=== PATIENT | female | born 1935 | race Caucasian/White ===

== ENCOUNTER 2017-09-15 08:32 | Outpatient (CLI) | payer MEDICARE ==
--- NOTE | 2017-09-15 09:34 | CT ---
NONCONTRAST CT THORAX: DATE: 09/15/17. HISTORY: Pulmonary infiltrate. Abnormal chest x-ray. COMPARISON: 08/29/16. FINDINGS: Again noted are the tree-in-bud reticulonodular densities scattered within the lungs bilaterally, but again more prominent within the right upper lobe. Ground-glass densities previously seen on the ean or study are not seen on today's exam. There is a stable 4 mm pulmonary nodule seen in the medial aspect of the right lower lobe. As noted on the prior exam, there is probably minimal mucus plugging within the region of the lingula and righ t middle lobe. There are also a few tiny 4 mm or less nodular densities within the right middle lobe . Lack of intravenous contrast limits the mediastinal structures, but no definite enlarged lymph nodes are seen. Vascular calcifications are again seen in the coronary arteries as well as the thoracic aorta. Post cholecystectomy changes are present. There is partial visualization of a sub-centimeter hypodense lesion in the lateral aspect mid portion left kidney which was not imaged on prior study. There has been interval vertebroplasty changes inv olving the compression fracture of the T12 vertebral body since the prior exam. Osteopenia is present. IMPRESSION: 1. Overall stable reticulonodular densities with tree-in-bud appearance seen scattered within the monique ngs bilaterally which may be related to persistent infectious or inflammatory process. Atypical infe ctious process is a possibility. 2. Stable 4 mm pulmonary nodules in the right lower lobe and right middle lobe. 3. Interval vertebroplasty changes of T12 vertebral body. 4. Cholecystectomy. 5. Subcentimeter incompletely imaged but too small to characterize hypodense lesion in the left kidn ey statistically likely representing a cyst. POS: [facility]
== END 2017-09-15 08:33 | disposition home or self-care (01) ==
LOC: CT 08:32
PROVIDERS: ATTEND Internal Medicine
DX: R91.1 Solitary pulmonary nodule (principal); R91.8 Other nonspecific abnormal finding of lung field; Z90.49 Acquired absence of other specified parts of digestive tract
CPT/HCPCS: 71250

== ENCOUNTER 2017-09-15 10:37 | Outpatient (CLI) | payer MEDICARE | END 2017-09-15 10:38 | disposition home or self-care (01) | LOC: LABBT 10:37 | PROVIDERS: ATTEND Orthopaedic Surgery Sports Medicine | DX: Z01.818 Encounter for other preprocedural examination (principal); R91.8 Other nonspecific abnormal finding of lung field ==

== ENCOUNTER 2017-09-27 06:48 | Day surgery (SDC) | payer MEDICARE ==
--- NOTE | 2017-09-15 10:49 | HP ---
This encounter needs to be placed with bronchoscopy that is going to be scheduled on 09/27/2017, so p lease include this H&P on that. SERVICE: Pulmonary Medicine. HISTORY OF PRESENT ILLNESS: The patient returned to clinic today with repeat CT scan of the chest. We have been following a small pulmonary nodule/mucus plug. I was hoping that she was going to cough this mucus plug out, but she never did. It is still present on the CT scan from today. As such, we are going to go down and investigate that thing. She also has a very small tree-in-bud infiltrate i n the posterior segment of the right upper lobe. This will give us an opportunity to sample that are a as well. She currently denies any fevers, chills, nausea, vomiting, night sweats, cough or sputum production. She has good appetite and her weight is stable. PAST MEDICAL HISTORY: 1. Dyslipidemia. 2. Hypertension. 3. Hypothyroidism. PAST SURGICAL HISTORY: 1. Cholecystectomy. 2. Hysterectomy. SOCIAL HISTORY: Negative for alcohol, tobacco or illicit drug use. She does use alcohol very rarely . She has no history of smoking. There is no exposure to chemicals, asbestos or tuberculosis. FAMILY HISTORY: Noncontributory. ALLERGIES: No known drug allergies. MEDICATIONS: 1. Aspirin 325 mg p.o. daily. 2. Diazepam 10 mg p.o. as needed. 3. Ambien 10 mg p.o. at bedtime as needed. 4. MiraLax 17 grams p.o. daily. 5. Calcium with vitamin D 1 tab p.o. daily. 6. Synthroid 50 mcg p.o. daily. 7. Lipitor 10 mg p.o. daily. 8. Eyedrops on a daily basis. REVIEW OF SYSTEMS: General, head, ears, eyes, nose, throat, cardiovascular, respiratory, GI, , mus culoskeletal, neurologic and skin is negative except as mentioned in the HPI. PHYSICAL EXAMINATION: VITAL SIGNS: Afebrile, pulse 86, respirations 13, saturation 99% on room air. GENERAL: Patient is awake, alert, in no apparent distress. LUNGS: Excellent air entry with prolonged expiratory phase or wheezing. HEART: Normal rate and regular. ABDOMEN: Soft, nontender, nondistended, bowel sounds positive. MUSCULOSKELETAL: No cyanosis or clubbing. No pitting in the bilateral lower extremities. NEUROLOGIC: Grossly nonfocal. IMAGING: As previously noted, CT of the chest demonstrates an endobronchial lesion in the medial bas al segment of the right lower lobe. She also has a tree-in-bud infiltrate in the posterior segment o f the right upper lobe. ASSESSMENT: 1. Pulmonary infiltrate. 2. Endobronchial lesion/pulmonary nodule. PLAN: I will however hold her aspirin 2 days prior to a bronchoscopy, so that we can investigate thi s thing. She will return to clinic in mid October. I will bring her back sooner if any endobronchial disease identifies malignant process.
[2017-09-15 11:01] VITALS: BMI 20.3
[2017-09-27] MEDS ORDERED: Lidocaine 4% PF 5 ML AMP NEB SCH (07:45)
[2017-09-27] MEDS ORDERED: Sodium Chloride 0.9% 1,000 ML IV SCH (07:45)
[2017-09-27] MEDS ORDERED: Lidocaine 2% PF 5 ML VIAL ONE (08:02)
[2017-09-27] MEDS ORDERED: LIDOCAINE HCL 4% Topical Sol (4 ML SOLN.PK.G.) FS SCH (08:15)
[2017-09-27] MEDS ORDERED: Lidocaine 1% (PF) 30 ML VIAL ONE (08:52)
[2017-09-27] MEDS ORDERED: Benzocaine 20% Spray 60 ML CAN ONE (08:53)
[2017-09-27] MEDS ORDERED: Fentanyl 100 MCG/2 ML VIAL ONE (08:54)
[2017-09-27] MEDS ORDERED: Sodium Chloride 0.9% 10 ML ONE (12:59)
[2017-09-27] MEDS ORDERED: PROPOFOL 200 MG/20 ML VIAL ONE (16:20)
[2017-09-27] MEDS ORDERED: Dexamethasone 20 MG/5 ML VIAL ONE (16:20)
[2017-09-27] MEDS ORDERED: Lidocaine 1% PF 5 ML VIAL ONE (16:20)
[2017-09-27] MEDS ORDERED: Glycopyrrolate 0.2 MG/ML 5 ML SYRINGE ONE (16:20)
[2017-09-27] MEDS ORDERED: Ondansetron HCl/PF 4 MG/2 ML Vial ONE (16:20)
--- NOTE | 2017-09-27 17:44 | OP ---
DATE OF PROCEDURE: 09/27/2017 SERVICE: Pulmonary Medicine. PROCEDURES: Fiberoptic bronchoscopy with: 1. Visual airway inspection. 2. Endobronchial brush from the medial basal segment of the right lower lobe. 3. Bronchioalveolar lavage from the medial basal segment of the right lower lobe and posterior segment of the right upper lobe. 4. Transbronchial biopsies from the right upper lobe. PREPROCEDURE DIAGNOSES: 1. Pulmonary nodule. 2. Pulmonary infiltrate. POSTPROCEDURE DIAGNOSES: 1. Pulmonary nodule. 2. Pulmonary infiltrate. PROCEDURE SNUFF BOX FINISHER: Nicanor Macdonald M.D. MEDICATIONS USED: For list of medications, please refer to anesthesia documentation. PREANESTHESIA ASSESSMENT: H&P had been performed. The patient's medications and allergies were reviewed. Informed consent was obtained after discussing risks, benefits, and rationale for performing the procedure as well as alternative options. DESCRIPTION OF PROCEDURE: A timeout was performed, identifying the correct procedure and patient with name and date of . Topical anesthesia was applied to the nose and posterior oropharynx. A diagnostic fiberoptic bronchoscope was introduced through the existing endotracheal tube. The bronchoscope was advanced into the trachea where a tracheobronchial tree inspection was carried out with clear identification of the right upper lobe, right middle lobe, right lower lobe, left upper lobe, lingula, and left lower lobe. Anatomy was normal to the segmental level. Endobronchial brushing was performed in the medial basal segment of the right lower lobe. BAL was also performed at this location. A subsequent BAL was performed in the right upper posterior segment of the right upper lobe. Transbronchial biopsies were obtained from the right upper lobe under fluoroscopic guidance. Hemostasis was verified and bronchoscope was subsequently removed from the patient. Post- procedure fluoroscopy did not demonstrate pneumothorax. FINDINGS: 1. No endobronchial disease was clearly identified. The bronchoscope could not get all the way to the area of interest in the medial basal segment of the right lower lobe. 2. Secretions were minimal, but thick and purulent. COMPLICATIONS: None. ESTIMATED BLOOD LOSS: Less than 2 mL. FLUOROSCOPY TIME: 2 minutes. DISPOSITION: The patient will be discharged from post-anesthesia care unit once she meets criteria. She will follow up as previously directed in clinic. JONATHAN
[2017-09-30 14:16] LABS: Fungus Stain Final report (.)
[2017-10-26 11:22] LABS: Fungus Culture Final report (.)
== END 2017-09-27 13:37 | disposition home or self-care (01) ==
LOC: SDC 06:48
PROVIDERS: ATTEND Internal Medicine
PROC: 0B9F8ZX Drainage of Right Lower Lung Lobe, Via Natural or Artificial Opening Endoscopic, Diagnostic (ICD-10-PCS; principal; 2017-09-27)
PROC: 0BDF8ZX Extraction of Right Lower Lung Lobe, Via Natural or Artificial Opening Endoscopic, Diagnostic (ICD-10-PCS; 2017-09-27)
PROC: 0BDC8ZX Extraction of Right Upper Lung Lobe, Via Natural or Artificial Opening Endoscopic, Diagnostic (ICD-10-PCS; 2017-09-27)
DX: R91.1 Solitary pulmonary nodule (principal); R91.8 Other nonspecific abnormal finding of lung field; M81.0 Age-related osteoporosis without current pathological fracture; E78.5 Hyperlipidemia, unspecified; I10 Essential (primary) hypertension; E03.9 Hypothyroidism, unspecified; Z79.82 Long term (current) use of aspirin; Z79.899 Other long term (current) drug therapy
CPT/HCPCS: 76001; 87070; 87102; 87116; 87205; 87206; 88104; 88112; 88305; 88313; 94640; J1100; J2001; J2405; J2704; J3010; J7620

== ENCOUNTER 2017-10-11 13:50 | Outpatient (CLI) | payer MEDICARE | END 2017-10-11 13:51 | disposition home or self-care (01) | LOC: BICMAMMO 13:50 | PROVIDERS: ATTEND Family Medicine | DX: Z12.31 Encounter for screening mammogram for malignant neoplasm of breast (principal); Z80.3 Family history of malignant neoplasm of breast | CPT/HCPCS: 77063; 77067 ==

== ENCOUNTER 2018-06-28 10:10 | Emergency (ER) | payer MEDICARE ==
[2018-06-28 10:37] LABS: #Basophils 0.1 thou/uL (0.0-0.2); #Eosinphils 0.4 thou/uL (0.0-0.7); #Lymphocytes 1.6 thou/uL (1.20-3.40); #Monocytes 0.5 thou/uL (0.11-0.59); #Neutrophils 2.5 thou/uL (1.40-6.50); %Basophils 2.1 % (0.0-1.0); %Lymphocytes 31.5 % (21.0-51.0); %Monocytes 10.3 % (0.0-10.0); %Neutrophils 49.1 % (42.0-75.0); Hemoglobin 14.2 g/dL (12.0-16.0); Mean Corpuscular HGB CONC 32.3 g/dL (32.0-36.0); Mean Corpuscular Hemoglobin 30.2 pg (27.0-31.0); Mean Corpuscular Volume 93.5 fL (78.0-98.0); Mean Platelet Volume 7.3 fL (7.4-10.4); Platelet Count 301 thou/uL (130-400); RBC Distribution Width 11.7 % (11.5-14.5); White Blood Cell (WBC) Count 5.1 thou/uL (4.8-10.8)
--- NOTE | 2018-06-28 10:49 | RAD ---
PORTABLE CHEST ONE VIEW: Date: 06-28-18 Time: 10:33 a.m. History: Difficulty breathing. FINDINGS: Comparison is made with exam of 07-18-16. The heart size is normal. The aorta is tortuous. The lungs are expanded without focal areas of consol idation, pneumothorax, or pleural effusions. IMPRESSION: No radiographic evidence of acute cardiopulmonary process. POS: H
[2018-06-28 11:01] LABS: Anion Gap 13 mmol/L (10-20); BUN (Urea Nitrogen) 10 mg/dL (9.8-20.1); Calc. Creatinine Clearance 0 mL/min (70-130); Calcium 9.7 mg/dL (7.8-10.44); Carbon Dioxide 24 mmol/L (23-31); Chloride 104 mmol/L (98-107); Estimated GFR-MDRD 65; Glucose 138 mg/dL (83-110); Potassium 3.7 mmol/L (3.5-5.1); Sodium 137 mmol/L (136-145)
[2018-06-28 11:04] LABS: CKMB 1.7 ng/mL (0-6.6); Troponin I Less than 0.010 ng/mL (< 0.028)
== END 2018-06-28 11:20 | disposition home or self-care (01) ==
LOC: ERS 10:10
DX: F41.9 Anxiety disorder, unspecified (principal); E03.9 Hypothyroidism, unspecified; E78.5 Hyperlipidemia, unspecified; Z79.899 Other long term (current) drug therapy
CPT/HCPCS: 71045; 80048; 82553; 83880; 84484; 85025; 94760

== ENCOUNTER 2018-12-12 08:40 | Outpatient (CLI) | payer MEDICARE ==
--- NOTE | 2018-12-12 10:51 | CT ---
EXAM: CT of the chest without contrast HISTORY: Pulmonary nodule COMPARISON: 09/15/2017, 08/29/2016, 10/15/2012 TECHNIQUE: Multiple contiguous axial images were obtained in a CT the chest without contrast. Coronal reformats were performed. FINDINGS: HEART: Normal in size without focal cardiac abnormality MEDIASTINUM: No hilar or mediastinal lymphadenopathy. Evaluation of the mediastinum is limited withou t IV contrast. LUNGS: Increased interstitial markings are seen in the right apex. There is a stable area of scarring along the peripheral aspect of the right upper lobe on image 14 of 64. There is a 6 mm nodule in the medial aspect of the right lower lobe on image 41 and 64 which appears to be larger than the prio r examination, but is stable compared to the exam from 2013. This is immediately adjacent to a bronchiole to the right lower lobe. PLEURAL SPACE: No pneumothorax or pleural effusion. CHEST WALL SOFT TISSUES: Unremarkable OSSEOUS STRUCTURES: Degenerative changes. Vertebroplasty cement at T12. VISUALIZED SUBDIAPHRAGMATIC STRUCTURES: The gallbladder has been removed. There is a hypodensity in t he left kidney which likely represents a cyst. IMPRESSION: Right lower lobe pulmonary nodule is changing in size and is immediately adjacent to a bronchiole. Th is could represent an intrabronchial lesion or focal mucous plug.
== END 2018-12-12 08:41 | disposition home or self-care (01) ==
LOC: CT 08:40
PROVIDERS: ATTEND Internal Medicine
DX: R91.1 Solitary pulmonary nodule (principal); R06.09 Other forms of dyspnea; J98.09 Other diseases of bronchus, not elsewhere classified
CPT/HCPCS: 71250

== ENCOUNTER 2018-12-27 10:44 | Outpatient (CLI) | payer MEDICARE ==
--- NOTE | 2018-12-27 11:16 | MMO ---
Bilateral MAMMO Bilat Screen [facility]. CLINICAL HISTORY: Patient is 83 years old and is seen for screening. The patient has the following family history of breast cancer: mother, at age 80. The patient has no personal history of cancer. The patient has a history of right Excisional Biopsy more than 10 years ago - benign. VIEWS: The views performed were: bilateral craniocaudal with tomosynthesis and bilateral mediolateral oblique with tomosynthesis. FILMS COMPARED: The present examination has been compared to prior imaging studies performed at [facility] on 07/18/2014, 08/06/2015, 09/08/2016 and 10/11/2017. MAMMOGRAM FINDINGS: There are scattered fibroglandular densities. There are vascular calcifications seen in both breasts. There are no suspicious masses, suspicious calcifications, or new areas of architectural distortion. IMPRESSION: A ROUTINE FOLLOW-UP MAMMOGRAM IN 1 YEAR IS RECOMMENDED. THE RESULTS OF THIS EXAM WERE SENT TO THE PATIENT. ACR BI-RADS Category 2 - Benign finding MAMMOGRAPHY NOTE: 1. A negative mammogram report should not delay a biopsy if a dominant of clinically suspicious mass is present. 2. Approximately 10% to 15% of breast cancers are not detected by mammography. 3. Adenosis and dense breasts may obscure an underlying neoplasm.
== END 2018-12-27 10:45 | disposition home or self-care (01) ==
LOC: BICMAMMO 10:44
PROVIDERS: ATTEND Family Medicine
DX: Z12.31 Encounter for screening mammogram for malignant neoplasm of breast (principal); Z80.3 Family history of malignant neoplasm of breast
CPT/HCPCS: 77063; 77067

== ENCOUNTER 2019-05-02 10:34 | Outpatient (CLI) | payer MEDICARE ==
--- NOTE | 2019-05-02 13:06 | BD ---
DEXA BONE DENSITY STUDY: INDICATIONS: Postmenopausal osteoporosis screening. FINDINGS: LUMBAR SPINE BMD (g/cm2) T-SCORE L1 0.725 -2.4 L2 0.805 -2.0 L3 0.767 -2.9 L4 0.736 -3.0 TOTAL 0.758 -2.6 FEMORAL NECK 0.574 -2.5 TOTAL 0.767 -1.4 TEN YEAR FRACTURE RISK: Major osteoporotic fracture: 24% Hip fracture: 8.0% IMPRESSION: The bone mineral density of the lumbar spine and femoral neck both indicate osteoporosis. POS: [facility]
== END 2019-05-02 10:35 | disposition home or self-care (01) ==
LOC: BICMAMMO 10:34
PROVIDERS: ATTEND Internal Medicine Rheumatology
DX: M81.0 Age-related osteoporosis without current pathological fracture (principal)
CPT/HCPCS: 77080

== ENCOUNTER 2019-09-15 13:42 | Inpatient (IN) | payer MEDICARE ==
[~2019-09-15 13:42] MED LIST: Iopamidol-370 76% 500 ML 1 ML ONE
[2019-09-15 14:07] LABS: #Basophils 0.1 thou/uL (0.0-0.2); #Eosinphils 0.5 thou/uL (0.0-0.7); #Monocytes 1.5 thou/uL (0.11-0.59); #Neutrophils 7.9 thou/uL (1.40-6.50); %Basophils 0.7 % (0.0-1.0); %Eosinophils 3.9 % (0.0-10.0); %Lymphocytes 23.1 % (21.0-51.0); %Monocytes 11.8 % (0.0-10.0); %Neutrophils 60.5 % (42.0-75.0); Hemoglobin 13.2 g/dL (12.0-16.0); Mean Corpuscular HGB CONC 34.1 g/dL (32.0-36.0); Mean Corpuscular Hemoglobin 31.4 pg (27.0-31.0); Mean Corpuscular Volume 92.1 fL (78.0-98.0); Mean Platelet Volume 7.2 fL (7.4-10.4); Platelet Count 398 thou/uL (130-400); RBC Distribution Width 11.6 % (11.5-14.5); Red Blood Cell (RBC) Count 4.21 mill/uL (4.20-5.40)
--- NOTE | 2019-09-15 14:19 | RAD ---
Portable frontal chest radiograph: 09/15/2019 COMPARISON: 06/28/2018 HISTORY: Chest pain with shortness of breath FINDINGS: Stable mild increased linear interstitial density with pulmonary hyperinflation. No pneumot horax or pleural fluid. No focal consolidation or alveolar edema. Increased density overlies the T12 vertebral body suggesting prior kyphoplasty. IMPRESSION: No acute findings.
[2019-09-15 14:28] LABS: ALT (SGPT) 19 U/L (8-55); AST (SGOT) 23 U/L (5-34); Alkaline Phosphatase 102 U/L (40-110); Anion Gap 13 mmol/L (10-20); BUN (Urea Nitrogen) 14 mg/dL (9.8-20.1); Bilirubin, Total 0.2 mg/dL (0.2-1.2); Calc. Creatinine Clearance 0 mL/min (70-130); Calcium 9.8 mg/dL (7.8-10.44); Carbon Dioxide 28 mmol/L (23-31); Chloride 99 mmol/L (98-107); Estimated GFR-MDRD 73; Globulin 4.2 g/dL (2.4-3.5); Glucose 96 mg/dL (83-110); Lipase 26 U/L (8-78); Potassium 3.5 mmol/L (3.5-5.1); Protein, Total 8.2 g/dL (6.0-8.3); Sodium 136 mmol/L (136-145)
[2019-09-15 14:48] LABS: CK (CPK) 54 U/L (29-168)
--- NOTE | 2019-09-15 15:47 | CT ---
CT ANGIOGRAM OF THE CHEST: HISTORY: Elevated d-dimer. Chest pain. COMPARISON: 12/12/2018; correlation abdomen pelvis CT 10/29/2014 TECHNIQUE: CT angiogram of the chest is performed in the axial plane. Three-dimensional reformatted i mages are submitted for interpretation FINDINGS: Mediastinum: No mass, lymphadenopathy or hematoma. HEART: Normal size. No significant pericardial fluid. Aorta: No aneurysm or dissection Upper solid abdominal viscera: No abnormal enhancement. Stable cyst emanating from the left kidney me asuring 1.3 cm Trachea and central bronchi: Patent Pleural spaces: No effusion Lung parenchyma: Chronic lung parenchymal changes. Interval development of 2 groundglass opacities in the lateral aspect of the left upper lobe. More focal consolidation in the medial anterior aspect of the left upper lobe, measuring 4.0 x 1.9 cm. Nodules: Stable solid nodule in the right lower lobe measures 0.7 x 0.6 cm, previously measuring 0.6 x 0.8 cm. Stable 0.6 cm nodules in the right upper lobe and middle lobe. Pneumothorax: None Osseous structures: No lytic or blastic lesions. Previous vertebroplasty change at the T12 level. Pulmonary arteries: Adequate contrast opacification pulmonary arterial system to the level of segment al arteries. No filling defect to suggest pulmonary embolism IMPRESSION: 1. No evidence of pulmonary artery embolism to the level segmental arteries. 2. Chronic lung parenchymal changes. 3. Stable nodules in the right lung. 4. Groundglass opacities and more focal consolidation in the left upper lobe. Correlate for infiltrat e. Continued surveillance to ensure resolution. Transcribed Date/Time: 09/15/2019 4:23 PM
[2019-09-15] MEDS ORDERED: Sodium Chloride 0.9% 100 ML ONE (16:37)
[2019-09-15] MEDS ORDERED: cefTRIAXone\\ROCEPHIN 1 GM VIAL ONE (16:37)
[2019-09-15] MEDS ORDERED: HYDROcodone/Acetaminophen 5/325 mg Tablet PO PRN (17:46)
[2019-09-15] MEDS ORDERED: Guaifenesin DM 100-10/5 ML UDCUP PO PRN (17:46)
[2019-09-15] MEDS ORDERED: Senokot S 8.6-50 MG TAB PO PRN (17:46)
[2019-09-15] MEDS ORDERED: Sodium Chloride 0.9% 1,000 ML IV SCH (18:00)
[2019-09-15 18:07] LABS: Troponin I Less than 0.010 ng/mL (< 0.028)
--- NOTE | 2019-09-15 18:10 | PDOC.HHP ---
Hospitalist HPI - History of Present Illness Chest pain with cough, deep breath History of Present Illness: 84F presents to the ED for evaluation of left sided chest pain for several days with inspiration and cough. Denies pain with exertion. Reports URI for over 10 days. Reports she finished a 7 day course of Amoxicillin Monday. Reports fever, Tmax 100.3 but denies chills or diaphoresis. Reports she has continued to feel worse despite antibiotics. Reports a productive cough. ED Course: CT chest with infiltrate on the left upper lung, no evidence of PE. WBC= 13 Was given a dose of Rocephin and will be admitted. Hospitalist ROS - Review of Systems Constitutional: reports: fever, malaise Respiratory: reports: cough, pleuritic pain Cardiovascular: reports: chest pain Hospitalist History - Past Medical History Cardiac: reports: Hyperlipidemia Pulmonary: reports: pneumonia SUGAR CONTROLLER: reports: no pertinent history Gastrointestinal: reports: no pertinent history Musculoskeletal: reports: Osteoarthritis, Other (osteoporosis) Endocrine: reports: Hypothyroidism, Osteopenia, Osteoporosis - Past Surgical History Past Surgical History: reports: Cholecystectomy, Hysterectomy - Family History Family History: reports: hyperlipidemia - Social History Smoking Status: Never smoker Alcohol: reports: None Drugs: reports: none Living Situation: With Family - Exam Eye: PERRL ENT: moist mucosa Neck: supple, no JVD Heart: RRR, normal peripheral pulses Respiratory: normal chest expansion, rhonchi Respiratory - other findings: decreased breath sounds to upper left lung tadeo Gastrointestinal: soft, non-tender Extremities: no cyanosis, no edema Skin: normal turgor Neurological: negative: speech deficit Neurological - other findings: speech is normal Musculoskeletal: normal tone, normal strength, generalized weakness Psychiatric: normal affect, A&O x 3 Hospitalist Results - Labs Result Diagrams: 09/15/19 13:56 09/15/19 13:56 Lab results: WBC 13.0 thou/uL (4.8-10.8) H 09/15/19 13:56 Hgb 13.2 g/dL (12.0-16.0) 09/15/19 13:56 Hct 38.7 % (36.0-47.0) 09/15/19 13:56 MCV 92.1 fL (78.0-98.0) 09/15/19 13:56 Plt Count 398 thou/uL (130-400) 09/15/19 13:56 Neutrophils % 60.5 % (42.0-75.0) 09/15/19 13:56 Sodium 136 mmol/L (136-145) 09/15/19 13:56 Potassium 3.5 mmol/L (3.5-5.1) 09/15/19 13:56 Chloride 99 mmol/L (98-107) 09/15/19 13:56 Carbon Dioxide 28 mmol/L (23-31) 09/15/19 13:56 BUN 14 mg/dL (9.8-20.1) 09/15/19 13:56 Creatinine 0.75 mg/dL (0.6-1.1) 09/15/19 13:56 Glucose 96 mg/dL (83-110) 09/15/19 13:56 Calcium 9.8 mg/dL (7.8-10.44) 09/15/19 13:56 Total Bilirubin 0.2 mg/dL (0.2-1.2) 09/15/19 13:56 AST 23 U/L (5-34) 09/15/19 13:56 ALT 19 U/L (8-55) 09/15/19 13:56 Alkaline Phosphatase 102 U/L (40-110) 09/15/19 13:56 Creatine Kinase 54 U/L (29-168) 09/15/19 13:56 Troponin I 0.013 ng/mL (< 0.028) 09/15/19 13:56 Serum Total Protein 8.2 g/dL (6.0-8.3) 09/15/19 13:56 Albumin 4.0 g/dL (3.4-4.8) 09/15/19 13:56 Lipase 26 U/L (8-78) 09/15/19 13:56 - Radiology Interpretation CT scan - chest Status: report reviewed by me (ground glass opacity/possible infiltrate to left upper lobe) Hospitalist H&P A/P - Problem (1) Left upper lobe pneumonia Code(s): J18.9 - PNEUMONIA, UNSPECIFIED ORGANISM Status: Acute (2) Dyslipidemia Code(s): E78.5 - HYPERLIPIDEMIA, UNSPECIFIED Status: Chronic (3) Hypothyroidism Code(s): E03.9 - HYPOTHYROIDISM, UNSPECIFIED Status: Chronic - Plan Plan: Rocephin and Azithromycin IVPB Duonebs q6 Robitussin for cough Trend troponins Walking program DVT and GI prophylaxis started Restart home meds once reconciled Case discussed with Dr. Nixon who agrees to plan
[2019-09-15] MEDS: Azithromycin 500 MG in Sodium Chloride 0.9% 250 ML 250 ML IVPB SCH (19:14)
[2019-09-15 19:21] VITALS: BMI 20.9
[2019-09-15] MEDS ORDERED: Diazepam 5 MG TAB PO PRN (20:17)
[2019-09-15] MEDS: Polyethylene Glycol 3350 17 GM Packet PO SCH (20:35)
[2019-09-15] MEDS: Famotidine 20 MG TAB PO SCH (20:37)
[2019-09-15] MEDS: Docusate 100 MG CAP PO SCH (20:37)
[2019-09-15] MEDS: Atorvastatin Calcium 10 MG TAB PO SCH (20:37)
[2019-09-15] MEDS: Latanoprost 0.005% Ophth Soln 2.5 ml Bottle EA EYE SCH (20:39)
[2019-09-15] MEDS: Polyethylene Glycol OPTH DROP 15 ML BOT EA EYE SCH (20:39)
[2019-09-15 21:02] LABS: Troponin I Less than 0.010 ng/mL (< 0.028)
--- NOTE | 2019-09-15 21:24 | PDOC.EVN ---
Event Note - Event Note Event Note: Patient seen and examined for CP - left sided - worse on coughing. Vitals reviewed. Rhonchi with scat rales on left. S1S2 +. Abd soft. Labs reviewed. Cont IV Ceftriaxone with Azithromycin Pain control Add Mucinex Add Nebs Walking program Reduce Lovenox to 30 mg daily I agree with the note by Cara Lynn.
[2019-09-16] MEDS: Acetaminophen 325 MG TAB PO PRN ×4 (01:01→16:27)
[2019-09-16 04:50] LABS: #Basophils 0.1 thou/uL (0.0-0.2); #Eosinphils 0.3 thou/uL (0.0-0.7); #Lymphocytes 1.9 thou/uL (1.20-3.40); #Monocytes 1.1 thou/uL (0.11-0.59); #Neutrophils 6.7 thou/uL (1.40-6.50); %Basophils 0.8 % (0.0-1.0); %Eosinophils 3.4 % (0.0-10.0); %Lymphocytes 18.8 % (21.0-51.0); %Monocytes 10.9 % (0.0-10.0); %Neutrophils 66.1 % (42.0-75.0); Hemoglobin 10.8 g/dL (12.0-16.0); Mean Corpuscular HGB CONC 33.2 g/dL (32.0-36.0); Mean Corpuscular Hemoglobin 30.8 pg (27.0-31.0); Mean Corpuscular Volume 92.7 fL (78.0-98.0); Mean Platelet Volume 7.1 fL (7.4-10.4); Platelet Count 348 thou/uL (130-400); RBC Distribution Width 11.5 % (11.5-14.5); White Blood Cell (WBC) Count 10.1 thou/uL (4.8-10.8)
[2019-09-16 05:07] LABS: Anion Gap 11 mmol/L (10-20); BUN (Urea Nitrogen) 10 mg/dL (9.8-20.1); Calc. Creatinine Clearance 48 mL/min (70-130); Calcium 8.3 mg/dL (7.8-10.44); Carbon Dioxide 27 mmol/L (23-31); Chloride 104 mmol/L (98-107); Estimated GFR-MDRD 80; Glucose 102 mg/dL (83-110); Potassium 3.6 mmol/L (3.5-5.1); Sodium 138 mmol/L (136-145)
[2019-09-16] MEDS ORDERED: traMADol HCl 50 MG TAB PO PRN (05:09)
[2019-09-16 05:17] LABS: Free T4 (Free Thyroxine) 1.26 ng/dL (0.70-1.48); Thyroid Stimulating Hormone 0.8391 uIU/mL (0.35-4.94)
[2019-09-16] MEDS: Levothyroxine Sodium 50 MCG TAB PO SCH (05:54)
[2019-09-16] MEDS: guaiFENesin ER 600 MG TAB PO SCH ×2 (08:14→22:59)
[2019-09-16] MEDS: Multivit, Therapeutic 1 TAB PO SCH (08:14)
[2019-09-16] MEDS: Aspirin 325 mg Enteric Coated Tablet PO SCH (08:14)
[2019-09-16] MEDS: Famotidine 20 MG TAB PO SCH ×2 (08:14→23:00)
[2019-09-16] MEDS: Polyethylene Glycol OPTH DROP 15 ML BOT EA EYE SCH ×3 (08:15→23:00)
[2019-09-16] MEDS ORDERED: Enoxaparin Sodium 40 MG/0.4 ML SYRINGE SC SCH (09:00)
--- NOTE | 2019-09-16 09:16 | PDOC.HOSPP ---
- Subjective Encounter Date: 09/16/19 Encounter Time: 09:14 Subjective: productive cough, no fever, chills - Objective Vital Signs & Weight: Vital Signs (12 hours) Temp Pulse Resp BP Pulse Ox 09/16/19 07:19 98.1 F 90 20 140/65 95 09/16/19 06:11 78 12 09/16/19 03:57 98.8 F 89 21 H 114/58 L 95 09/16/19 00:09 99.5 F 89 20 122/58 L 92 L Weight Weight 114 lb 3.2 oz I&O: 09/15/19 09/16/19 09/17/19 06:59 06:59 06:59 Intake Total 1515 Output Total 600 Balance 915 Result Diagrams: 09/16/19 04:20 09/16/19 04:20 Hospitalist ROS - Medication Medications: Active Medications Generic Name Dose Route Start Last Admin Trade Name Freq PRN Reason Stop Dose Admin Acetaminophen 650 mg 09/15/19 17:46 09/16/19 06:35 Tylenol PO 650 mg Q4H PRN Administration Headache/Fever/Mild Pain (1-3) Albuterol/Ipratropium 3 ml 09/15/19 19:00 09/16/19 06:11 Duoneb NEB 3 ml [id number] JOSELINE Administration Aspirin 325 mg 09/16/19 09:00 09/16/19 08:14 Ecotrin PO 325 mg DAILY JOSELINE Administration Atorvastatin Calcium 10 mg 09/15/19 21:00 09/15/19 20:37 Lipitor PO 10 mg HS JOSELINE Administration Diazepam 10 mg 09/15/19 20:17 09/15/19 20:37 Valium PO 10 mg HSPRN PRN Administration Anxiety/Insomnia Docusate Sodium 200 mg 09/15/19 21:00 09/15/19 20:37 Colace PO 200 mg HS JOSELINE Administration Famotidine 20 mg 09/15/19 21:00 09/16/19 08:14 Pepcid PO 20 mg BID JOSELINE Administration Guaifenesin 600 mg 09/16/19 09:00 09/16/19 08:14 Mucinex PO 600 mg Q12HR JOSELINE Administration Azithromycin 500 mg/ Sodium 250 mls @ 250 mls/hr 09/15/19 18:00 09/15/19 19: 14 Chloride IVPB 250 mls Q24HR JOSELINE Administration Latanoprost 1 drop 09/15/19 21:00 09/15/19 20:39 Xalatan 0.005% Ophth Soln EA EYE 1 drop HS JOSELINE Administration Levothyroxine Sodium 50 mcg 09/16/19 06:00 09/16/19 05:54 Synthroid PO 50 mcg 0600 JOSELINE Administration Multivitamins 1 tab 09/16/19 09:00 09/16/19 08:14 Theragran PO 1 tab DAILY JOSELINE Administration Polyethylene Glycol 17 gm 09/15/19 21:00 09/15/19 20:35 Miralax PO 17 gm HS JOSELINE Administration Propylene Glycol 1 drop 09/15/19 21:00 09/16/19 08:15 Systane Opth Drop 15ml Bot EA EYE 1 drop TID JOSELINE Administration Sodium Chloride 10 ml 09/15/19 17:46 09/15/19 19:12 Flush - Normal Saline IVF 10 ml PRN PRN Administration Saline Flush - Exam General Appearance: awake alert Neck: no JVD Heart: RRR, no murmur Respiratory - other findings: rales L ant chest , OW clear lung tadeo Gastrointestinal: soft, normal bowel sounds Extremities: no edema Hosp A/P (1) PNA (pneumonia) Code(s): J18.9 - PNEUMONIA, UNSPECIFIED ORGANISM Status: Acute Qualifiers: Pneumonia type: due to unspecified organism Laterality: left Lung location: upper lobe of lung Qualified Code(s): J18.9 - Pneumonia, unspecified organism (2) Dyslipidemia Code(s): E78.5 - HYPERLIPIDEMIA, UNSPECIFIED Status: Chronic (3) Hypothyroidism Code(s): E03.9 - HYPOTHYROIDISM, UNSPECIFIED Status: Chronic (4) Pleuritic chest pain Code(s): R07.81 - PLEURODYNIA Status: Acute - Plan blood C&S pending cont iv antibx inpt, medical floor
[2019-09-16] MEDS ORDERED: cefTRIAXone\\ROCEPHIN 2 GM in Sodium Chloride 0.9% 100 ML IVPB SCH (15:00)
[2019-09-16] MEDS: Azithromycin 500 MG in Sodium Chloride 0.9% 250 ML 250 ML IVPB SCH (18:15)
[2019-09-16] MEDS ORDERED: Enoxaparin Sodium 30 MG/0.3 ML SYRINGE SC SCH (21:00)
[2019-09-16] MEDS: Docusate 100 MG CAP PO SCH (22:59)
[2019-09-16] MEDS: Atorvastatin Calcium 10 MG TAB PO SCH (22:59)
[2019-09-16] MEDS: Latanoprost 0.005% Ophth Soln 2.5 ml Bottle EA EYE SCH (23:00)
[2019-09-16] MEDS: Polyethylene Glycol 3350 17 GM Packet PO SCH (23:01)
[2019-09-17] MEDS: Levothyroxine Sodium 50 MCG TAB PO SCH (06:06)
[2019-09-17] MEDS: Polyethylene Glycol OPTH DROP 15 ML BOT EA EYE SCH (07:56)
[2019-09-17] MEDS: Aspirin 325 mg Enteric Coated Tablet PO SCH (07:56)
[2019-09-17] MEDS: Famotidine 20 MG TAB PO SCH (07:56)
[2019-09-17] MEDS: Multivit, Therapeutic 1 TAB PO SCH (07:56)
[2019-09-17] MEDS: guaiFENesin ER 600 MG TAB PO SCH (07:56)
--- NOTE | 2019-09-17 11:24 | PDOC.HOSPP ---
- Subjective Encounter Date: 09/17/19 Encounter Time: 11:14 - Objective Vital Signs & Weight: Vital Signs (12 hours) Temp Pulse Resp BP Pulse Ox 09/17/19 08:00 96 09/17/19 07:56 94 14 96 09/17/19 07:18 98.7 F 98 20 167/84 H 95 09/17/19 04:50 98.5 F 96 20 138/73 95 09/17/19 00:51 98.4 F 89 20 135/70 95 09/17/19 00:17 76 14 96 Weight Weight 114 lb 3.2 oz I&O: 09/16/19 09/17/19 09/18/19 06:59 06:59 06:59 Intake Total 1515 830 Output Total 600 Balance 915 830 Result Diagrams: 09/16/19 04:20 09/16/19 04:20 Hospitalist ROS - Medication Medications: Active Medications Generic Name Dose Route Start Last Admin Trade Name Freq PRN Reason Stop Dose Admin Acetaminophen 650 mg 09/15/19 17:46 09/16/19 16:27 Tylenol PO 650 mg Q4H PRN Administration Headache/Fever/Mild Pain (1-3) Albuterol/Ipratropium 3 ml 09/15/19 19:00 09/17/19 07:56 Duoneb NEB 3 ml [id number] JOSELINE Administration Aspirin 325 mg 09/16/19 09:00 09/17/19 07:56 Ecotrin PO 325 mg DAILY JOSELINE Administration Atorvastatin Calcium 10 mg 09/15/19 21:00 09/16/19 22:59 Lipitor PO 10 mg HS JOSELINE Administration Diazepam 10 mg 09/15/19 20:17 09/15/19 20:37 Valium PO 10 mg HSPRN PRN Administration Anxiety/Insomnia Docusate Sodium 200 mg 09/15/19 21:00 09/16/19 22:59 Colace PO 200 mg HS JOSELINE Administration Enoxaparin Sodium 30 mg 09/16/19 21:00 09/16/19 23:00 Lovenox SC 30 mg 2100 JOSELINE Administration Famotidine 20 mg 09/15/19 21:00 09/17/19 07:56 Pepcid PO 20 mg BID JOSELINE Administration Guaifenesin 600 mg 09/16/19 09:00 09/17/19 07:56 Mucinex PO 600 mg Q12HR JOSELINE Administration Guaifenesin/Dextromethorphan 15 ml 09/15/19 17:46 09/16/19 14:06 Robitussin Dm PO 15 ml Q4H PRN Administration Cough Azithromycin 500 mg/ Sodium 250 mls @ 250 mls/hr 09/15/19 18:00 09/16/19 18: 15 Chloride IVPB 250 mls Q24HR JOSELINE Administration Ceftriaxone Sodium 2 gm/ 100 mls @ 200 mls/hr 09/16/19 15:00 09/16/19 14:06 Sodium Chloride IVPB 100 mls Q24HR JOSELINE Administration Latanoprost 1 drop 09/15/19 21:00 09/16/19 23:00 Xalatan 0.005% Ophth Soln EA EYE 1 drop HS JOSELINE Administration Levothyroxine Sodium 50 mcg 09/16/19 06:00 09/17/19 06:06 Synthroid PO 50 mcg 0600 JOSELINE Administration Multivitamins 1 tab 09/16/19 09:00 09/17/19 07:56 Theragran PO 1 tab DAILY JOSELINE Administration Polyethylene Glycol 17 gm 09/15/19 21:00 09/16/19 23:01 Miralax PO 17 gm HS JOSELINE Administration Propylene Glycol 1 drop 09/15/19 21:00 09/17/19 07:56 Systane Opth Drop 15ml Bot EA EYE 1 drop TID JOSELINE Administration Sodium Chloride 10 ml 09/15/19 17:46 09/15/19 19:12 Flush - Normal Saline IVF 10 ml PRN PRN Administration Saline Flush Hosp A/P (1) PNA (pneumonia) Code(s): J18.9 - PNEUMONIA, UNSPECIFIED ORGANISM Status: Acute Qualifiers: Pneumonia type: due to unspecified organism Laterality: left Lung location: upper lobe of lung Qualified Code(s): J18.9 - Pneumonia, unspecified organism (2) Dyslipidemia Code(s): E78.5 - HYPERLIPIDEMIA, UNSPECIFIED Status: Chronic (3) Hypothyroidism Code(s): E03.9 - HYPOTHYROIDISM, UNSPECIFIED Status: Chronic (4) Pleuritic chest pain Code(s): R07.81 - PLEURODYNIA Status: Acute - Plan blood C&S pending cont iv antibx inpt, medical floor
--- NOTE | 2019-09-17 11:51 | CON ---
DATE OF CONSULTATION: HISTORY OF PRESENT ILLNESS: An 84-year-old female, who was admitted to the hospital with left-sided chest pain and a cough, but no fever or chills. The pain was worse when she was taking a deep breath. Initial chest x-ray was taken, which showed no acute infiltrates. She has seen Dr. Macdonald in our office, where she was followed for a left lung lesion and underwent a bronchoscopy, since then issues have resolved. She is a former smoker, quit smoking almost 50 years ago. PAST MEDICAL HISTORY: Pertinent for hypothyroidism, high cholesterol, and hyperlipidemia. PAST SURGICAL HISTORY: Previous surgeries; cholecystectomy, hysterectomy, and left breast biopsy. SOCIAL HISTORY: Alcohol, minimal. Tobacco, former smoker. CHRONIC MEDICATIONS: 1. Synthroid 50. 2. Lipitor 10. 3. Diazepam 10. 4. Ambien 10. 5. Calcium. 6. Eyedrops for glaucoma. REVIEW OF SYSTEMS: Otherwise, negative. PHYSICAL EXAMINATION: GENERAL: She is in no acute distress. VITAL SIGNS: Revealed temperature 98, pulse 94, respirations 14, saturations 97% on room air, blood pressure . CHEST: Revealed no wheezing or crackles. CARDIAC: Normal S1 and S2. No gallops. ABDOMEN: No masses. LABORATORY DATA: White count 10,000. Lytes are normal. Thyroid function is normal. So far, all cultures negative. X-ray was normal, but CT showed nonspecific ground-glass opacity, maybe left lung. ASSESSMENT AND PLAN: 1. Pleurisy versus pneumonia, left chest. Normal chest x-ray. 2. Hypothyroidism. I will switch her to oral medication over the next 24 to 48 hours. Consultation note, 70 minutes, 50% direct patient care. Job ID: [id number]
--- NOTE | 2019-09-17 12:08 | DIS ---
DATE OF ADMISSION: 09/16/2019 DATE OF DISCHARGE: 09/17/2019 PRIMARY CARE PROVIDER: Victoriano Poon MD. DISPOSITION: Discharged home. FINAL DIAGNOSES: Pneumonia, pleuritic chest pain, dyslipidemia, hypothyroidism. DISCHARGE MEDICATIONS: 1. Omnicef 300 mg p.o. b.i.d. for 7 days. 2. Lipitor 10 mg at bedtime. 3. Levothyroxine 50 mcg a day. 4. Aspirin 325 mg a day. ALLERGIES: NONE. CODE STATUS: Full. PENDING AT TIME OF DISCHARGE: Blood cultures x2 negative at 48 hours. HOSPITAL COURSE: The patient was admitted through the [facility] to the hospitalist service. The patient was evaluated for left-sided chest pain. She had temperature of a 100.3. CT interpretation of her chest suggested an infiltrate in the left upper lobe. She was treated with Rocephin and azithromycin. She has been afebrile during her hospital stay. Initial CBC; white count 13.0, followup 10.1; platelet count 398,000 and 348,000. She had elevated D-dimer at 0.047, which prompted the CT scan that revealed the infiltrate, however, no pulmonary emboli. Comprehensive metabolic profile is normal. Cardiac enzymes were normal. The patient's chest is clear. Today, she is doing well. She is being discharged on Omnicef 300 mg p.o. b.i.d. for 7 days to follow up with her PCP in 3 days. Radiology has recommended followup of the CT scan for clearing. The patient also has a audio narrator, Dr. Macdonald. It will be reasonable to refer the patient to him if the CT scan does not clear. No consult. No procedures. Job ID: [id number] MTDD
[2019-09-17 13:28] VITALS: BP 137/72; TEMP 98.5
== END 2019-09-17 14:25 | disposition home or self-care (01) | DRG 195 ==
LOC: ERS 13:42 → 2SW 17:45 → OBSVTOIN 09-16 09:12 → T4-A 09-16 11:31
PROVIDERS: ADMIT Family Medicine; ATTEND Emergency Medicine
DX: J18.9 Pneumonia, unspecified organism (principal); R07.81 Pleurodynia; M19.90 Unspecified osteoarthritis, unspecified site; M81.0 Age-related osteoporosis without current pathological fracture; E78.5 Hyperlipidemia, unspecified; E03.9 Hypothyroidism, unspecified; I10 Essential (primary) hypertension; Z90.710 Acquired absence of both cervix and uterus; Z90.49 Acquired absence of other specified parts of digestive tract; Z79.890 Hormone replacement therapy; Z79.899 Other long term (current) drug therapy; Z87.891 Personal history of nicotine dependence
CPT/HCPCS: 36415; 71045; 71275; 80048; 80053; 82550; 83690; 83735; 84439; 84443; 84484; 85025; 85379; 87040; 93005; 94640; 96365; J0456; J0696; J1650; J3490; J7050; J7620; Q9967

== ENCOUNTER 2019-09-27 10:51 | Outpatient (CLI) | payer MEDICARE ==
--- NOTE | 2019-09-27 12:40 | RAD ---
2 VIEW CHEST: Date: 09/27/2019 COMPARISON: Portable film of 09/15/2019. FINDINGS: Lung tadeo appear clear of infiltrate. Heart and mediastinum appear normal. The vasculature is withi n normal range. Vertebroplasty change at T12. Scoliotic curvature and degenerative spine change. IMPRESSION: No acute lung process. POS: JANNETTE
== END 2019-09-27 10:52 | disposition home or self-care (01) ==
LOC: SCSRAD 10:51 → EDSTATUS 10:59
PROVIDERS: ATTEND Nurse Practitioner Family
DX: J18.9 Pneumonia, unspecified organism (principal)
CPT/HCPCS: 71046

== ENCOUNTER 2019-10-02 16:10 | Emergency (ER) | payer MEDICARE ==
[2019-10-02] MEDS ORDERED: Ondansetron PF 4 MG/2 ML Vial ONE (16:37)
[2019-10-02 16:55] LABS: #Basophils 0.1 thou/uL (0.0-0.2); #Eosinphils 0.1 thou/uL (0.0-0.7); #Lymphocytes 0.3 thou/uL (1.20-3.40); #Monocytes 0.3 thou/uL (0.11-0.59); #Neutrophils 9.8 thou/uL (1.40-6.50); %Basophils 0.8 % (0.0-1.0); %Eosinophils 0.6 % (0.0-10.0); %Lymphocytes 2.4 % (21.0-51.0); %Monocytes 2.5 % (0.0-10.0); %Neutrophils 93.7 % (42.0-75.0); Hemoglobin 13.1 g/dL (12.0-16.0); Mean Corpuscular HGB CONC 33.4 g/dL (32.0-36.0); Mean Corpuscular Hemoglobin 30.8 pg (27.0-31.0); Mean Corpuscular Volume 92.1 fL (78.0-98.0); Mean Platelet Volume 7.8 fL (7.4-10.4); Platelet Count 311 thou/uL (130-400); RBC Distribution Width 12.4 % (11.5-14.5); Red Blood Cell (RBC) Count 4.27 mill/uL (4.20-5.40); White Blood Cell (WBC) Count 10.4 thou/uL (4.8-10.8)
[2019-10-02 17:25] LABS: ALT (SGPT) 15 U/L (8-55); AST (SGOT) 43 U/L (5-34); Albumin 4.1 g/dL (3.4-4.8); Alkaline Phosphatase 84 U/L (40-110); Anion Gap 16 mmol/L (10-20); BUN (Urea Nitrogen) 16 mg/dL (9.8-20.1); Bilirubin, Total 0.7 mg/dL (0.2-1.2); Calc. Creatinine Clearance 0 mL/min (70-130); Calcium 8.7 mg/dL (7.8-10.44); Carbon Dioxide 22 mmol/L (23-31); Chloride 102 mmol/L (98-107); Estimated GFR-MDRD 75; Globulin 4.1 g/dL (2.4-3.5); Glucose 114 mg/dL (83-110); Potassium 4.7 mmol/L (3.5-5.1); Protein, Total 8.2 g/dL (6.0-8.3); Sodium 135 mmol/L (136-145)
[2019-10-02 19:26] LABS: Bacteria/HPF None Seen HPF (None Seen); Bilirubin Negative (Negative); Blood, Urine 2+ (Negative); Clarity Clear (Clear); Glucose, Urine (Dipstick) Normal (Negative); Leukocyte Negative Leu/uL (Negative); Nitrite Negative (Negative); Protein, Urine (Dipstick) Negative (Neg-Trace); Squamous Epithelial None Seen HPF (0-3); Urobilinogen Normal mg/dL (Less than 2); WBC/HPF 0-3 HPF (0-3)
[2019-10-02] MEDS ORDERED: Acetaminophen 500 MG TAB ONE (19:37)
--- NOTE | 2019-10-05 14:49 | EKG ---
Test Reason : NVD Blood Pressure : / mmHG Vent. Rate : 107 BPM Atrial Rate : 107 BPM P-R Int : 176 ms QRS Dur : 096 ms QT Int : 356 ms P-R-T Axes : 069 -44 072 degrees QTc Int : 475 ms Sinus tachycardia Possible Left atrial enlargement Left axis deviation Incomplete right bundle branch block Left ventricular hypertrophy Cannot rule out Septal infarct , age undetermined Abnormal ECG Confirmed by MELANIA SHARP ([id number]), editorial cartoonist BRENDON FRANK ([id number]) on 10/05/2019 2:49:13 PM Referred By: Confirmed By:MELANIA SHARP
== END 2019-10-02 19:44 | disposition home or self-care (01) ==
LOC: ERS 16:10
DX: E86.0 Dehydration (principal); R11.2 Nausea with vomiting, unspecified; E78.5 Hyperlipidemia, unspecified; E03.9 Hypothyroidism, unspecified; Z79.899 Other long term (current) drug therapy
CPT/HCPCS: 80053; 81003; 81015; 85025; 93005; 96361; 96374; J2405

== ENCOUNTER 2020-02-14 12:20 | Outpatient (CLI) | payer MEDICARE ==
--- NOTE | 2020-02-18 07:17 | MRI ---
MRI Pelvis WO Con History: Sacral insufficiency fracture Comparison: None. Findings: Bones: Nondisplaced transversely oriented fracture of the sacrum at S5 with adjacent perios teal edema suggesting a component of healing. No SI joint widening. Remainder of the sacrum is intact. The femoral heads and necks are intact. Muscles: Muscle signal and bulk is normal. No significant atrophy. Intrapelvic soft tissues: Unremarkable Soft tissues: No significant joint effusion. Labral evaluation is limited. No significant greater tro chanteric bursa effusion. Impression: Nondisplaced transversely oriented fracture of S5 with evidence of healing.
== END 2020-02-14 12:21 | disposition home or self-care (01) ==
LOC: BICMRI 12:20
PROVIDERS: ATTEND Specialist
DX: M80.08XA Age-related osteoporosis with current pathological fracture, vertebra(e), initial encounter for fracture (principal)
CPT/HCPCS: 72195

== ENCOUNTER 2020-05-19 09:53 | Outpatient (CLI) | payer MEDICARE ==
--- NOTE | 2020-05-19 12:25 | MMO ---
Bilateral MAMMO Bilat Screen [facility]. CLINICAL HISTORY: Patient is 84 years old and is seen for screening. The patient has the following family history of breast cancer: mother, at age 80. The patient has no personal history of cancer. The patient has a history of right Excisional Biopsy more than 10 years ago - benign. VIEWS: The views performed were: bilateral craniocaudal with tomosynthesis and bilateral mediolateral oblique with tomosynthesis. FILMS COMPARED: The present examination has been compared to prior imaging studies performed at [facility] on 08/06/2015, 09/08/2016, 10/11/2017 and 12/27/2018. This study has been interpreted with the assistance of computer-aided detection. MAMMOGRAM FINDINGS: There are scattered fibroglandular densities. There are vascular calcifications seen in both breasts. There are no suspicious masses, suspicious calcifications, or new areas of architectural distortion. IMPRESSION: THERE IS NO MAMMOGRAPHIC EVIDENCE OF MALIGNANCY. A ROUTINE FOLLOW-UP MAMMOGRAM IN 1 YEAR IS RECOMMENDED. THE RESULTS OF THIS EXAM WERE SENT TO THE PATIENT. ACR BI-RADS Category 2 - Benign finding MAMMOGRAPHY NOTE: 1. A negative mammogram report should not delay a biopsy if a dominant of clinically suspicious mass is present. 2. Approximately 10% to 15% of breast cancers are not detected by mammography. 3. Adenosis and dense breasts may obscure an underlying neoplasm. Reported by: ROMAINE KAM MD Electonically Signed: [id number]
== END 2020-05-19 09:54 | disposition home or self-care (01) ==
LOC: BICMAMMO 09:53
PROVIDERS: ATTEND Family Medicine
DX: Z12.31 Encounter for screening mammogram for malignant neoplasm of breast (principal); Z80.3 Family history of malignant neoplasm of breast
CPT/HCPCS: 77063; 77067

== ENCOUNTER 2021-06-11 11:02 | Outpatient (CLI) | payer MEDICARE | END 2021-06-11 11:03 | disposition home or self-care (01) | LOC: BICMAMMO 11:02 | PROVIDERS: ATTEND Family Medicine | DX: Z12.31 Encounter for screening mammogram for malignant neoplasm of breast (principal); Z80.3 Family history of malignant neoplasm of breast | CPT/HCPCS: 77063; 77067 ==

== ENCOUNTER 2021-08-05 10:12 | Outpatient (CLI) | payer MEDICARE | END 2021-08-05 10:13 | disposition home or self-care (01) | LOC: BICRAD 10:12 | PROVIDERS: ATTEND Internal Medicine Cardiovascular Disease | DX: R06.02 Shortness of breath (principal) | CPT/HCPCS: 71046 ==

== ENCOUNTER 2021-11-23 09:29 | Outpatient (CLI) | payer MEDICARE | END 2021-11-23 09:30 | disposition home or self-care (01) | LOC: RAD 09:29 | PROVIDERS: ATTEND Internal Medicine Critical Care Medicine | DX: R06.00 Dyspnea, unspecified (principal) | CPT/HCPCS: 71046 ==

== ENCOUNTER 2022-06-03 09:08 | Outpatient (CLI) | payer MEDICARE | END 2022-06-03 09:09 | disposition home or self-care (01) | LOC: BICRAD 09:08 | PROVIDERS: ATTEND Nurse Practitioner Family | DX: R63.4 Abnormal weight loss (principal) | CPT/HCPCS: 71046 ==

== ENCOUNTER 2024-02-06 09:22 | Emergency (ER) | payer MEDICARE ==
[2024-02-06 10:50] LABS: #Basophils 0.08 10x3/uL (0.0-0.2); %Basophils 0.7 % (0.0-1.0); %Eosinophils 0.3 % (0.0-10.0); %Lymphocytes 15.6 % (21.0-51.0); %Monocytes 10.7 % (0.0-10.0); %Neutrophils 72.2 % (42.0-75.0); Hematocrit 39.6 % (36.0-47.0); Hemoglobin 13.6 g/dL (12.0-16.0); Mean Corpuscular HGB CONC 34.3 g/dL (32.0-36.0); Mean Corpuscular Hemoglobin 29.4 pg (27.0-31.0); Mean Corpuscular Volume 85.5 fL (78.0-98.0); Mean Platelet Volume 9.4 fL (7.4-10.4); Platelet Count 362 10x3/uL (130-400); Red Blood Cell (RBC) Count 4.63 mill/uL (4.20-5.40)
[2024-02-06] MEDS ORDERED: fentaNYL 50 mcg/mL 1 mL Vial ONE (11:13)
[2024-02-06 11:28] LABS: Bacteria/HPF None Seen HPF (None Seen); Bilirubin Negative (Negative); Blood, Urine 3+ (Negative); CAUTI Indications for Culture Alt mental st,lethar; Clarity Clear (Clear); Glucose, Urine (Dipstick) 30 mg/dL (Negative); Ketone, Urine 60 mg/dL (Negative); Leukocyte Negative Leu/uL (Negative); Nitrite Negative (Negative); Protein, Urine (Dipstick) 50 mg/dL (Neg-Trace); RBC/HPF 21-50 HPF (0-3); Specific Gravity, Urine 1.023 (1.002-1.036); Squamous Epithelial 0-3 HPF (0-3); Urobilinogen 3 mg/dL (Less than 2); WBC/HPF 0-3 HPF (0-3)
[2024-02-06 11:30] LABS: Urine Culture Reflex No No
[2024-02-06 11:37] LABS: Troponin I 1.359 ng/mL (< 0.028)
[2024-02-06 11:41] LABS: ALT (SGPT) 16 U/L (8-55); AST (SGOT) 34 U/L (5-34); Albumin 3.4 g/dL (3.4-4.8); Alkaline Phosphatase 117 U/L (40-110); Anion Gap 18 mmol/L (10-20); BUN (Urea Nitrogen) 9 mg/dL (9.8-20.1); Bilirubin, Total 1.4 mg/dL (0.2-1.2); Calc. Creatinine Clearance 0 mL/min (70-130); Calcium 8.7 mg/dL (7.8-10.44); Carbon Dioxide 21 mmol/L (23-31); Chloride 97 mmol/L (98-107); Estimated GFR 66; Globulin 4.5 g/dL (2.4-3.5); Glucose 97 mg/dL (83-110); Potassium 4.7 mmol/L (3.5-5.1); Protein, Total 7.9 g/dL (5.8-8.1); Sodium 131 mmol/L (136-145)
[2024-02-06 14:27] LABS: Lactic Acid 1.8 mmol/L (0.5-2.2)
== END 2024-02-06 19:51 | disposition home or self-care (01) ==
LOC: ERS 09:22
DX: S06.5X0A Traumatic subdural hemorrhage without loss of consciousness, initial encounter (principal); S06.A1XA Traumatic brain compression with herniation, initial encounter; R41.82 Altered mental status, unspecified; W19.XXXA Unspecified fall, initial encounter
CPT/HCPCS: 51701; 70450; 71045; 80053; 81001; 83605; 83735; 84484; 85025; 87040; 87086; 93005; 96374; 99285; J3010; 36415